=== PATIENT | female | born 1965 | race Caucasian/White ===

== ENCOUNTER 2017-06-10 10:17 | Emergency (ER) | payer OTHER ==
--- NOTE | 2017-06-10 12:28 | EDM.PDOC ---
Scribed by Franca Newsome 06/10/17 1212 for Mame Lorenzana NP ED HPI GENERAL MEDICAL PROBLEM - General Chief Complaint: Eye Problems Stated Complaint: FELL,HIT RT EYE ON BATHTUB Time Seen by Provider: 06/10/17 10:43 Source of Information: Reports: Patient, RN, RN Notes Reviewed History Limitations: Reports: No Limitations - History of Present Illness INITIAL COMMENTS - FREE TEXT/NARRATIVE: Patient presents to ER after she tripped over rug and hit her face on bathtub. This occurred at [id number] Saturday morning. She denies being knocked out. She denies taking blood thinners. Denies visual disturbance. States nose bleed after incidence. Onset Date: 06/09/17 Location: Reports: Face Quality: Reports: Ache Severity: Moderate Improves with: Reports: None Worsens with: Reports: None Associated Symptoms: Reports: No Other Symptoms Treatments [employer]: Reports: NSAIDS Right Eye Pain Score (Numeric/FACES): 3 - Related Data Allergies Allergy/AdvReac Type Severity Reaction Status Date / Time cefpodoxime [From Vantin] Allergy Rash Verified 06/10/17 10:33 ciprofloxacin Allergy Rash Verified 06/10/17 10:33 sulfamethoxazole Allergy Rash Verified 06/10/17 10:33 [From Bactrim] tetracycline Allergy Swelling Verified 06/20/14 12:34 trimethoprim [From Bactrim] Allergy Rash Verified 06/10/17 10:33 Home Meds: Home Meds Amoxicillin/Potassium Clav [Amox Tr-K Clv 875-125 mg Tab] 06/20/14 [History] Citalopram [Citalopram Hbr] 40 mg PO DAILY 06/20/14 [History] Metoprolol Succinate [Toprol XL] 25 mg PO DAILY 06/20/14 [History] Calcium Carbonate [Calcium] 1 tab PO DAILY 06/10/17 [History] Cholecalciferol (Vitamin D3) [Vitamin D] 1 tab PO DAILY 06/10/17 [History] Cranberry 1 cap PO DAILY 06/10/17 [History] Fish Oil/[place]-3 Fatty Acids [Fish Oil 1,000 MG] 1 gm PO DAILY 06/10/17 [History ] Multivitamin [Multivitamins] 1 cap PO DAILY 06/10/17 [History] Past Medical History Cardiovascular History: Reports: Hypertension 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: Psychiatric History: Reports: Anxiety - Infectious Disease History Infectious Disease History: Reports: Chicken Pox - Past Surgical History HEENT Surgical History: Reports: Naso-Sinus Surgery GI Surgical History: Reports: Cholecystectomy Social & Family History - Tobacco Use Smoking Status *Q: Current Every Day Smoker Years of Tobacco use: 20 Packs/Tins Daily: 1 - Caffeine Use Caffeine Use: Reports: Coffee, Soda - Alcohol Use Days Per Week of Alcohol Use: 1 Number of Drinks Per Day: 5 Total Drinks Per Week: 5 - Recreational Drug Use Recreational Drug Use: No ED ROS GENERAL - Review of Systems Review Of Systems: ROS reveals no pertinent complaints other than HPI. ED EXAM GENERAL W FULL EYE - Physical Exam Exam: See Below Exam Limited By: No Limitations General Appearance: Alert, WD/WN, No Apparent Distress Eye Exam: Bilateral Eye: Other (right eye scleral injection. Superficial laceration to right upper eyelid 1cm.) Ears: Normal External Exam, Normal Canal, Hearing Grossly Normal, Normal TMs Nose: Normal Inspection, Normal Mucosa, No Blood Throat/Mouth: Normal Inspection, Normal Lips, Normal Teeth, Normal Gums, Normal Oropharynx, Normal Voice, No Airway Compromise Head: Atraumatic, Normocephalic Neck: Normal Inspection, Supple, Non-Tender, Full Range of Motion Respiratory/Chest: No Respiratory Distress, Lungs Clear, Normal Breath Sounds, No Accessory Muscle Use, Chest Non-Tender Cardiovascular: Normal Peripheral Pulses, Regular Rate, Rhythm, No Edema, No Gallop, No JVD, No Murmur, No Rub GI/Abdominal: Normal Bowel Sounds, Soft, Non-Tender, No Organomegaly, No Distention, No Abnormal Bruit, No Mass (Male) Exam: Deferred (Female) Exam: Deferred Back Exam: Normal Inspection, Full Range of Motion, NT Extremities: Normal Inspection, Normal Range of Motion, Non-Tender, Normal Capillary Refill, No Pedal Edema Neurological: Alert, Oriented, CN II-XII Intact, Normal Cognition, Normal Gait, Normal Reflexes, No Motor/Sensory Deficits Psychiatric: Normal Affect, Normal Mood Skin Exam: Other (eccymosisandswelling around right orbit and right cheek.) Lymphatic: No Adenopathy Course - Vital Signs Last Recorded V/S: Last Vital Signs Temp 97.4 F 06/10/17 12:12 Pulse 80 06/10/17 12:12 Resp 18 01/01/18 12:12 BP 145/93 H 06/10/17 12:12 Pulse Ox 100 06/10/17 12:12 - Orders/Labs/Meds Orders: Active Orders 24 hr Category Date Time Status Max Facial Sinus wo Cont [CT] Urgent Exams 06/10/17 10:49 Taken - Radiology Interpretation Free Text/Narrative:: CT maxillofacial sinuses: Minimally displaced fractures of the bilateral nasal bones. Right forehead/periorbital/premaxillary soft tissue swelling. See Rad report. - Re-Assessments/Exams Free Text/Narrative Re-Assessment/Exam: 06/10/17 12:26 Discussed the patient case with Dr. Ulrich at [facility] in [place]. He states the patient can come to [facility] today to have the nose reduced or come to the clinic next week. Pt prefers to go today to reduce the risk of needing to rebreak the nose to reduce. Departure - Departure Time of Disposition: 12:08 Disposition: DC/Tfer to Acute Hospital 02 Condition: Fair Clinical Impression: Nasal bone fractures - Discharge Information Forms: ED Department Discharge, Interfacility Transfer EMTALA - My Orders Last 24 Hours: My Active Orders 06/10/17 10:49 Max Facial Sinus wo Cont [CT] Urgent - Assessment/Plan Last 24 Hours: My Active Orders 06/10/17 10:49 Max Facial Sinus wo Cont [CT] Urgent I have read and agree with the documentation that has been completed regarding this visit. By signing this record, I attest that the documentation was completed in my physical presence and is an accurate record of the encounter.
== END 2017-06-10 12:20 ==
LOC: DL.ED 10:17
DX: S02.2XXA Fracture of nasal bones, initial encounter for closed fracture (principal); S01.111A Laceration without foreign body of right eyelid and periocular area, initial encounter; I10 Essential (primary) hypertension; F17.210 Nicotine dependence, cigarettes, uncomplicated; F41.9 Anxiety disorder, unspecified; Z79.899 Other long term (current) drug therapy; Z88.1 Allergy status to other antibiotic agents; Z88.2 Allergy status to sulfonamides; W18.09XA Striking against other object with subsequent fall, initial encounter
CPT/HCPCS: 70486; 99285

== ENCOUNTER 2021-06-10 02:54 | Emergency (ER) | payer BC | END 2021-06-10 03:10 | disposition left against medical advice (07) | LOC: DL.ED 02:54 | DX: Z53.21 Procedure and treatment not carried out due to patient leaving prior to being seen by health care provider (principal) ==

== ENCOUNTER 2022-03-07 18:49 | Inpatient (IN) | payer BC ==
[2022-03-07] MEDS ORDERED: Aspirin 81 MG Tab.Chew PO ONE (19:09)
[2022-03-07] MEDS ORDERED: Diltiazem 25 MG/5 ML SDV IVPUSH ONE (19:09)
[2022-03-07] MEDS ORDERED: Sodium Chloride 0.9% 1,000 ML IV ONE (19:10)
[2022-03-07 19:47] LABS: ANION GAP 14.9 mEq/L (7-13); CHLORIDE,CL 99 mmol/L (98-107); SODIUM,NA 136 mmol/L (136-145)
[2022-03-07 19:55] LABS: ESTIMATED GFR 47 mL/min (>=60)
[2022-03-07] MEDS ORDERED: Magnesium Hydroxide 400 MG/5 ML Susp 30 ML Cup PO PRN (22:35)
[2022-03-07] MEDS ORDERED: Polyethylene Glycol 3350 Powder 17 GM Packet PO PRN (22:35)
[2022-03-07] MEDS ORDERED: Albuterol/Ipratropium 3.0-0.5 MG/3 ML Neb Soln NEB PRN (22:35)
[2022-03-07] MEDS ORDERED: Acetaminophen 325 MG Tab PO PRN (22:35)
[2022-03-07] MEDS ORDERED: HYDROmorphone 0.5 MG/0.5 ML Syringe IVPUSH PRN (22:35)
[2022-03-07] MEDS ORDERED: Temazepam 15 MG Cap PO PRN (22:35)
[2022-03-07] MEDS ORDERED: Ondansetron 4 MG/2 ML SDV IVPUSH PRN (22:35)
[2022-03-07] MEDS ORDERED: Acetaminophen/HYDROcodone 325-10 MG Tab PO PRN (22:35)
[2022-03-07] MEDS ORDERED: Metoprolol Tartrate 5 MG/5 ML SDV IVPUSH PRN (22:39)
[2022-03-07] MEDS ORDERED: hydrALAZINE 20 MG/ML SDV IVPUSH PRN (22:39)
[2022-03-07] MEDS ORDERED: Metoprolol Tartrate 25 MG Tab PO SCH (22:45)
[2022-03-07] MEDS ORDERED: Sodium Chloride 0.9% 250 ML IV SCH (22:45)
[2022-03-07] MEDS ORDERED: LORazepam 2 MG/ML SDV IVPUSH PRN (22:48)
[2022-03-07] MEDS ORDERED: Flumazenil 0.1 MG/ML 5 ML MDV IVPUSH PRN (22:48)
[2022-03-07] MEDS ORDERED: Apixaban 5 MG Tab PO ONE (22:51)
[2022-03-08 00:30] LABS: AMPHETAMINES,URINE NEGATIVE (NEGATIVE); BARBITURATES,URINE NEGATIVE (NEGATIVE); BENZODIAZEPINE,URINE NEGATIVE (NEGATIVE); MDMA (ECSTASY), URINE NEGATIVE (NEGATIVE); METHADONE,URINE NEGATIVE (NEGATIVE); METHAMPHETAMINES,URINE NEGATIVE (NEGATIVE); OPIATES,URINE NEGATIVE (NEGATIVE); OXYCODONE,URINE NEGATIVE (NEGATIVE); PHENCYCLIDINE,URINE NEGATIVE (NEGATIVE); TCA,URINE NEGATIVE (NEGATIVE)
[2022-03-08 07:01] LABS: ANION GAP 12.7 mEq/L (7-13)
[2022-03-08] MEDS ORDERED: Non-Formulary Medication 1 Each (Escitalopram [Lexapro] 20 MG Tablet) PO SCH (09:00)
[2022-03-08] MEDS ORDERED: Nicotine 21 MG/24 Hr Patch TRDERM SCH (09:00)
[2022-03-08] MEDS: Metoprolol Tartrate 25 MG Tab PO SCH ×2 (09:26→20:22)
[2022-03-08] MEDS: Apixaban 5 MG Tab PO SCH ×2 (09:26→20:22)
[2022-03-08] MEDS ORDERED: Ubidecarenone [Co Q-10] 10 MG Capsule PO PRN (09:45)
[2022-03-08] MEDS ORDERED: Carboxymethylcellulose Sodium 1% Ophth Gel 0.4 ML UD EYEBOTH PRN (19:38)
[2022-03-08] MEDS: Famotidine 20 MG Tab PO SCH (20:22)
[2022-03-08] MEDS: Fluticasone NASAL Spray 16 GM Bottle NAS SCH (20:23)
[2022-03-08] MEDS ORDERED: PEG EYEBOTH SCH (21:00)
[2022-03-08] MEDS ORDERED: PROPYLENE GLYCOL EYEBOTH SCH (21:00)
[2022-03-08] MEDS ORDERED: BUPROPION 75 MG PO SCH (21:00)
[2022-03-09 07:09] LABS: ANION GAP 11.6 mEq/L (7-13)
[2022-03-09] MEDS ORDERED: Acetaminophen/Butalbital/Caffeine 325-50-40 MG Tab PO ONE (07:45)
[2022-03-09] MEDS: Metoprolol Tartrate 25 MG Tab PO SCH ×2 (07:56→09:03)
[2022-03-09] MEDS: Apixaban 5 MG Tab PO SCH (07:59)
[2022-03-09] MEDS: Fluticasone NASAL Spray 16 GM Bottle NAS SCH (07:59)
[2022-03-09] MEDS: Famotidine 20 MG Tab PO SCH (07:59)
[2022-03-09] MEDS ORDERED: Multivitamin Tab PO SCH (09:00)
[2022-03-09] MEDS ORDERED: CRANBERRY 400 MG PO SCH (09:00)
[2022-03-09] MEDS ORDERED: DULOXETINE 60 MG PO SCH (09:00)
[2022-03-09] MEDS ORDERED: Cholecalciferol (Vitamin D3) 25 MCG Tab PO SCH (09:00)
[2022-03-09] MEDS ORDERED: Amiodarone 200 MG Tab PO ONE (09:11)
== END 2022-03-09 10:45 | disposition home or self-care (01) | DRG 201 ==
LOC: DL.ED 18:49 → DL.MS 22:04
PROVIDERS: ADMIT Internal Medicine; ATTEND Internal Medicine
DX: I48.91 Unspecified atrial fibrillation (principal); I49.5 Sick sinus syndrome; N17.9 Acute kidney failure, unspecified; F17.210 Nicotine dependence, cigarettes, uncomplicated; E66.9 Obesity, unspecified; Z68.31 Body mass index [BMI] 31.0-31.9, adult; D72.829 Elevated white blood cell count, unspecified; Z20.822 Contact with and (suspected) exposure to COVID-19; F41.0 Panic disorder [episodic paroxysmal anxiety]; I10 Essential (primary) hypertension; L40.9 Psoriasis, unspecified; R73.02 Impaired glucose tolerance (oral); R73.9 Hyperglycemia, unspecified; J30.9 Allergic rhinitis, unspecified; Z88.1 Allergy status to other antibiotic agents; Z88.2 Allergy status to sulfonamides; Z79.899 Other long term (current) drug therapy; Z90.49 Acquired absence of other specified parts of digestive tract
CPT/HCPCS: 36415; 71045; 80053; 80305-QW; 80307; 82150; 83690; 83735; 83880; 84439; 84443; 84484; 85025; 85610; 93005; A9270-GY; J0282; J0360; J3490; J7030; U0002

== ENCOUNTER 2022-09-15 12:50 | Emergency (ER) | payer BC ==
[2022-09-15] MEDS ORDERED: Phenazopyridine 95 MG Tab PO ONE ×2 (12:51→14:39)
[2022-09-15] MEDS ORDERED: Nitrofurantoin Monohydrate/Macrocrystalline 100 MG Cap PO ONE ×2 (12:51→14:39)
[2022-09-15] MEDS ORDERED: Nitrofurantoin Monohydrate/Macrocrystalline 100 MG Cap ONE (14:48)
[2022-09-15] MEDS ORDERED: Phenazopyridine 95 MG Tab ONE (14:50)
== END 2022-09-15 15:02 | disposition home or self-care (01) ==
LOC: DL.ED 12:50
DX: N39.0 Urinary tract infection, site not specified (principal); I10 Essential (primary) hypertension; Z88.1 Allergy status to other antibiotic agents; Z88.2 Allergy status to sulfonamides; Z88.8 Allergy status to other drugs, medicaments and biological substances; Z79.899 Other long term (current) drug therapy
CPT/HCPCS: 81001; 87086; 87088; 87186; 99283; A9270-GY